=== PATIENT | female | born 1940 | race Caucasian/White ===

== ENCOUNTER 2016-12-12 14:24 | Inpatient (IN) ==
[2016-12-12] MEDS ORDERED: NS 1,000 ML IV SCH (14:33)
[2016-12-12] MEDS ORDERED: ZOFRAN IV PRN (14:37)
[2016-12-12] MEDS ORDERED: ROCEPHIN 1 GM/NS 1 GM/50 ML IVPB IV SCH (14:45)
[2016-12-12] MEDS ORDERED: CLINDAMYCIN 900 MG/NS 900 MG/50 ML IVPB IV SCH (14:45)
[2016-12-12] MEDS ORDERED: LOVENOX SUBQ SCH (14:45)
[2016-12-14] MEDS ORDERED: VANCOMYCIN IV PER PHARMACY MISC SCH (17:00)
[2016-12-14] MEDS: NORCO-10 PO PRN ×2 (17:39→21:41)
[2016-12-14] MEDS: CLINDAMYCIN 900 MG/NS 900 MG/50 ML IVPB IV SCH (18:30)
[2016-12-14] MEDS: SANTYL OINT TOP SCH (19:16)
[2016-12-14] MEDS ORDERED: VANCOMYCIN 1,600 MG in NS 250 ML IV ONE (20:00)
--- NOTE | 2016-12-14 20:49 | HISTORY AND PHYSICAL ---
CHIEF COMPLAINT: Sore on her right leg, both swelling and redness of both legs. HISTORY: This is the first recent [facility] admission for this 76-year-old, white female who is had intermittent cellulitis of both legs. She was seen in the office a few days ago and given clindamycin 300 mg t.i.d. After taking 1 tablet she had nausea and vomiting. This resolved and she tried to take some other tablets, but her legs apparently became worse. She presented to the office today and is admitted for culture of the ulcer on her right leg, Wound Care consultation, and IV antibiotics with clindamycin and vancomycin. History is significant also for severe depression. She had been placed on Lexapro recently, but has been suicidal over the past week. There has been a neighbor involved in trying to obtain appropriate care for her. Also, [employer] visited yesterday afternoon. Discussion was made with them and a letter sent related to her inability to make decisions for herself. She had stopped taking medicine appropriately and also was yelling at times that she would kill herself. There was a caregiver assisting at her home until about a week ago when he left with several possessions including a large amount of money in her bank. She has been having moderate right hip and low back pain. X- rays were ordered, but the patient was noncompliant in going to get the x-rays about 2 weeks ago. Because of her health conditions, fairly recent loss of her sister, and loss of possessions from the in-house caregiver, she has developed increasing depression over the past few weeks. A discussion was made concerning evaluation and possible admission to [facility], but the patient was resistant. Plans were made to admit her to the hospital at [place] for treatment of her legs a few days ago and orders were sent via computer. She was noncompliant in going to the hospital. The neighbor visited today as well as calls from [facility] convinced her to come to the office. After being seen it was felt that she should be admitted for treatment of her leg infections with intravenous antibiotics. She is diabetic and sugar has been fairly well controlled until recently. PAST MEDICAL HISTORY: No recent hospitalizations or surgery. 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 PRESENT MEDICATIONS: Glimepiride 4 mg daily, aspirin 325 mg daily, Brimonidine eye drops 0.1%, 1 drop in each eye q.8 hours, levothyroxine 100 mcg 1 daily, levothyroxine 25 mcg 1 daily, spironolactone 25 mg 1 daily, alprazolam 1 mg at bedtime for sleep, and [place] 10/325 1 t.i.d. p.r.n. pain. ALLERGIES: Penicillin, Cipro, Septra DS, and Pletal. REVIEW OF SYSTEMS: Significant for hearing loss, mild visual impairment, depression, osteoarthritis of the spine and hips, also of the knees. She has diabetes. There has been intermittent swelling and cellulitis of her legs due to chronic venous insufficiency. SOCIAL HISTORY: She is a and about a year ago lost her sister. She has chronic anxiety. There is no history of smoking or alcohol usage. 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 She was very resistant to either hospitalization or rehabilitation. A few days ago she was suicidal. She denies suicidal ideation today. FAMILY HISTORY: Significant for hypertension and heart disease. PHYSICAL EXAMINATION: VITAL SIGNS: Temperature 97.6 degrees, heart rate 54, respirations 24, blood pressure 114/94, O2 saturation 96% on room air. GENERAL: Patient is a well-developed, well-nourished, obese white female with general malaise. HEENT: Pupils equal, round, and reactive to light. Tympanic membranes without inflammation. Pharynx benign with no erythema or exudate. NECK: Supple with no mass or lymphadenopathy. HEART: Regular in rate and rhythm with no murmur, rub or gallop. LUNGS: Clear with no rales or rhonchi. ABDOMEN: Soft with no mass or organomegaly. EXTREMITIES: 2+ pretibial edema, moderate erythema and induration of both lower legs. There is a 3 cm deep ulcer of the anterior right tibia. Feet are warm. RECTAL AND GENITALIA: Deferred. IMPRESSION: Cellulitis of both legs, ulcer of the right lower leg, venous insufficiency, diabetes, depression, hearing loss with history of acoustic neuroma. PLAN: Admit for treatment with intravenous antibiotics, wound care evaluation, cultures of blood and ulcer, evaluation and treatment for depression. cc: Sabino Kimball MD
[2016-12-14] MEDS ORDERED: HUMALOG SUBQ SCH (21:00)
[2016-12-14] MEDS: XANAX PO SCH (21:32)
[2016-12-14] MEDS: ALPHAGAN P 0.1% OPHTH SOLN BOTH EYES SCH (21:33)
[2016-12-14] MEDS: HUMALOG DOSE (PARKWAY) SUBQ SCH (21:52)
[2016-12-15] MEDS: CLINDAMYCIN 900 MG/NS 900 MG/50 ML IVPB IV SCH ×3 (00:06→16:07)
[2016-12-15] MEDS: ALPHAGAN P 0.1% OPHTH SOLN BOTH EYES SCH ×2 (04:04→12:19)
[2016-12-15 06:11] LABS: MANUAL DIFF NEEDED? NO
[2016-12-15 06:20] LABS: BASO% 0.9 % (0.0-0.8); EOS# 0.67 X1000 (0.0-0.7); EOS% 11.9 % (0.0-10.0); HEMATOCRIT 26.1 % (37.0-47.0); HEMOGLOBIN 7.6 g/dL (12.0-16.0); IMM GRAN# 0.01 X1000 (0.0-0.04); IMM GRAN% 0.2 % (0.0-0.5); LYMPH# 1.71 X1000 (1.2-3.4); LYMPH% 30.3 % (20.5-51.1); MCH 24.7 PG (27-31); MCHC 29.1 g/dL (33-37); MCV 84.7 FL (81-99); MONO# 0.67 X1000 (0.11-0.59); MONO% 11.9 % (1.7-9.3); NEUT% 44.8 % (42.2-75.2); PLT 313 X1000 (130-400); RBC 3.08 XMIL (4.2-5.4)
[2016-12-15] MEDS: NORCO-10 PO PRN ×3 (06:45→21:25)
[2016-12-15] MEDS: SYNTHROID PO SCH ×2 (06:45→06:46)
[2016-12-15 06:50] LABS: CALCIUM 8.2 mg/dL (8.8-10.2); POTASSIUM 4.6 mmol/L (3.5-5.1)
[2016-12-15] MEDS: HUMALOG DOSE (PARKWAY) SUBQ SCH ×3 (06:56→16:04)
--- NOTE | 2016-12-15 07:28 | Diag Imaging Result Document ---
PROCEDURE NAME: LOWER LEG-RIGHT - 12/15/2016 RIGHT TIBIA FIBULA, FOUR VIEWS: FINDINGS: There is a soft tissue ulcer adjacent to the mid tibia. No periosteal reaction. No fracture or dislocation. Longstanding arthritic changes at the knee. IMPRESSION: No definite plain film evidence of osteomyelitis. If clinical suspicion persists, then a 3 phase bone scan or MRI may be beneficial. [facility]
--- NOTE | 2016-12-15 07:37 | Diag Imaging Result Document ---
PROCEDURE NAME: LUMBAR SPINE 2-VIEWS - 12/15/2016 LUMBAR SPINE AP AND LATERAL, THREE VIEWS: FINDINGS: There is mild scoliosis. Degenerative bone spurring is found throughout the lumbar spine. There are multiple vacuum disks. Mild subluxation of L5 on the sacrum of approximately 6 mm to 8 mm. Mild compression fracture to the L2 vertebra. Moderate atherosclerosis. IMPRESSION: 1. Mild scoliosis with moderate to marked degenerative changes. 2. Atherosclerosis. 3. Calcified uterine fibroids.
--- NOTE | 2016-12-15 07:43 | Diag Imaging Result Document ---
PROCEDURE NAME: CHEST-1 VIEW - 12/15/2016 AP CHEST: COMPARISON: 05/04/2015. FINDINGS: The lungs are well expanded. The heart is enlarged. Mild increased interstitial markings. Minimal atelectasis in the lower left lung. No pleural effusions identified. IMPRESSION: Cardiomegaly with pulmonary edema.
--- NOTE | 2016-12-15 08:47 | Diag Imaging Result Document ---
PROCEDURE NAME: XRAY HIP W/PELVIS BILAT 3-4VWS - 12/15/2016 AP PELVIS AND BILATERAL HIPS: FINDINGS: The hip joint spaces are well maintained. There is some generalized osteopenia. There are densely calcified leiomyomata in the mid pelvis and a large amount of stool is present in the descending and rectosigmoid colon. IMPRESSION: No evidence of acute bony disease. Constipation.
[2016-12-15] MEDS: LEXAPRO PO SCH (09:14)
[2016-12-15] MEDS: ASPIRIN EC PO SCH (09:14)
[2016-12-15] MEDS: LASIX IV SCH ×2 (09:15→21:26)
[2016-12-15] MEDS: ALDACTONE PO SCH (09:15)
[2016-12-15] MEDS: SANTYL OINT TOP SCH (09:15)
[2016-12-15] MEDS ORDERED: BENADRYL PO ONE (11:16)
[2016-12-15] MEDS ORDERED: TYLENOL PO ONE (11:16)
[2016-12-15] MEDS ORDERED: NS 250 ML ONE (12:06)
[2016-12-15] MEDS: XANAX PO SCH (21:23)
[2016-12-15] MEDS: DILAUDID IV PRN (22:12)
[2016-12-16] MEDS: ALPHAGAN P 0.1% OPHTH SOLN BOTH EYES SCH ×4 (01:26→20:59)
[2016-12-16] MEDS: HUMALOG DOSE (PARKWAY) SUBQ SCH ×5 (01:26→20:59)
[2016-12-16] MEDS: LITHOBID PO SCH ×2 (01:53→20:59)
[2016-12-16] MEDS: DILAUDID IV PRN ×5 (01:53→20:58)
[2016-12-16] MEDS: CLINDAMYCIN 900 MG/NS 900 MG/50 ML IVPB IV SCH ×3 (01:55→17:03)
[2016-12-16] MEDS: SYNTHROID PO SCH ×2 (06:29)
--- NOTE | 2016-12-16 08:47 | PROGRESS NOTE ---
DATE: 12/16/2016 VITAL SIGNS: Temperature 98.5, heart rate 59, respirations 22, blood pressure 122/47, O2 saturation on room air 97%. The patient continues to complain with lumbar and right hip pain partially relieved by Dilaudid. The edema in her legs is improved, but erythema and ulcer on the right leg are about the same. Blood cultures showed no growth at this time. PLAN: Add Lyrica and Flexeril. Laboratory will be rechecked tomorrow morning. cc: Sabino Kimball MD
[2016-12-16] MEDS: LASIX IV SCH ×2 (09:45→20:58)
[2016-12-16] MEDS: ASPIRIN EC PO SCH (09:45)
[2016-12-16] MEDS: ALDACTONE PO SCH (09:45)
[2016-12-16] MEDS: LEXAPRO PO SCH (09:46)
[2016-12-16] MEDS: FLEXERIL PO PRN ×2 (09:46→20:58)
[2016-12-16] MEDS: LYRICA PO SCH ×2 (09:46→20:58)
[2016-12-16] MEDS: SANTYL OINT TOP SCH (17:27)
[2016-12-16] MEDS ORDERED: VANCOMYCIN 1,400 MG in NS 250 ML IV SCH (20:00)
[2016-12-16] MEDS: XANAX PO SCH (20:58)
[2016-12-17] MEDS: CLINDAMYCIN 900 MG/NS 900 MG/50 ML IVPB IV SCH ×3 (00:25→16:19)
[2016-12-17] MEDS: DILAUDID IV PRN ×4 (00:25→15:35)
[2016-12-17] MEDS: SYNTHROID PO SCH ×4 (05:57→06:00)
[2016-12-17] MEDS: HUMALOG DOSE (PARKWAY) SUBQ SCH ×3 (05:59→15:37)
[2016-12-17] MEDS: ALPHAGAN P 0.1% OPHTH SOLN BOTH EYES SCH ×2 (05:59→12:15)
[2016-12-17 07:10] LABS: MANUAL DIFF NEEDED? NO
[2016-12-17 07:41] LABS: CALCIUM 8.7 mg/dL (8.8-10.2); POTASSIUM 4.7 mmol/L (3.5-5.1)
[2016-12-17 07:42] LABS: BASO% 0.5 % (0.0-0.8); EOS# 0.59 X1000 (0.0-0.7); EOS% 7.6 % (0.0-10.0); HEMATOCRIT 32.2 % (37.0-47.0); IMM GRAN# 0.01 X1000 (0.0-0.04); IMM GRAN% 0.1 % (0.0-0.5); LYMPH# 1.31 X1000 (1.2-3.4); LYMPH% 16.8 % (20.5-51.1); MCH 26.1 PG (27-31); MCHC 31.1 g/dL (33-37); MCV 84.1 FL (81-99); MONO# 1.11 X1000 (0.11-0.59); MONO% 14.3 % (1.7-9.3); MPV 9.9 FL (7.4-10.4); NEUT% 60.7 % (42.2-75.2); PLT 348 X1000 (130-400); RBC 3.83 XMIL (4.2-5.4)
--- NOTE | 2016-12-17 08:55 | PROGRESS NOTE ---
DATE: 12/17/2016 VITAL SIGNS: Temperature 98.5 degrees, heart rate 67, respirations 21, blood pressure 157/58, O2 saturation 98% on room air. LABORATORY DATA: Hemoglobin 10, hematocrit 32.2, white blood count 7700 with 61% neutrophils. Sodium 134, potassium 4.7, BUN 33, creatinine 1.2, glucose 107. Wound cultures positive for pseudomonas and enterococcus, both sensitive to vancomycin. IMPRESSION: The patient seems to be feeling better this morning with less back pain. Chest is clear. PLAN: Continue IV antibiotics and physical therapy. Rehab or admission to [facility], [place] will be considered. cc: Sabino Kimball MD
[2016-12-17] MEDS: SANTYL OINT TOP SCH (09:22)
[2016-12-17] MEDS: LASIX IV SCH ×2 (09:23→20:44)
[2016-12-17] MEDS: LEXAPRO PO SCH (09:23)
[2016-12-17] MEDS: LYRICA PO SCH ×2 (09:23→20:44)
[2016-12-17] MEDS: ALDACTONE PO SCH (09:23)
[2016-12-17] MEDS: ASPIRIN EC PO SCH (09:25)
[2016-12-17] MEDS: DILAUDID PO PRN (20:44)
[2016-12-17] MEDS: FLEXERIL PO PRN (20:44)
[2016-12-17] MEDS: XANAX PO SCH (20:44)
[2016-12-18] MEDS: CLINDAMYCIN 900 MG/NS 900 MG/50 ML IVPB IV SCH ×3 (01:28→17:35)
[2016-12-18] MEDS: DILAUDID PO PRN ×4 (01:36→20:23)
[2016-12-18] MEDS: VANCOMYCIN 1,400 MG in NS 250 ML IV SCH (02:10)
[2016-12-18] MEDS: HUMALOG DOSE (PARKWAY) SUBQ SCH ×5 (02:41→20:30)
[2016-12-18] MEDS: ALPHAGAN P 0.1% OPHTH SOLN BOTH EYES SCH ×4 (02:41→20:25)
[2016-12-18] MEDS: LITHOBID PO SCH ×2 (02:57→20:27)
[2016-12-18] MEDS: SYNTHROID PO SCH ×2 (06:41)
--- NOTE | 2016-12-18 08:39 | PROGRESS NOTE ---
DATE: 12/18/2016 VITAL SIGNS: Temperature 99.5 degrees, heart rate 113, respirations 18, blood pressure 155/56, O2 saturation 95% on room air. SUBJECTIVE: The patient continues to have moderate lumbar and right hip pain. Source is most likely lumbar spine degenerative change. Her legs have improved but ulcer persists on the right mid anterior tibial area. Plan whirlpool for right leg daily. DISPOSITION: Will be either [facility], rehab, or home. Her depression seems somewhat improved. cc: Sabino Kimball MD
[2016-12-18] MEDS: ASPIRIN EC PO SCH (08:59)
[2016-12-18] MEDS: LYRICA PO SCH ×2 (08:59→20:23)
[2016-12-18] MEDS: LASIX IV SCH ×2 (08:59→20:24)
[2016-12-18] MEDS: LEXAPRO PO SCH (08:59)
[2016-12-18] MEDS: ALDACTONE PO SCH (08:59)
[2016-12-18] MEDS: SANTYL OINT TOP SCH (13:23)
[2016-12-18] MEDS: XANAX PO SCH (20:24)
[2016-12-19] MEDS: DILAUDID PO PRN ×5 (00:37→20:29)
[2016-12-19] MEDS: CLINDAMYCIN 900 MG/NS 900 MG/50 ML IVPB IV SCH ×3 (00:37→17:11)
[2016-12-19] MEDS ORDERED: BLISTEX MEDICATED BERRY LIP BALM TOP PRN (02:02)
[2016-12-19] MEDS: HUMALOG DOSE (PARKWAY) SUBQ SCH ×3 (06:23→17:10)
[2016-12-19] MEDS: SYNTHROID PO SCH ×2 (06:24)
[2016-12-19] MEDS: ALPHAGAN P 0.1% OPHTH SOLN BOTH EYES SCH ×3 (06:24→20:33)
--- NOTE | 2016-12-19 07:53 | PROGRESS NOTE ---
DATE: 12/19/2016 Temperature 100.1 degrees, heart rate 88, respirations 20, blood pressure 165/60, O2 saturation on room air 96%. [facility] visited yesterday and she denied depression. She complains with tremor. This is most likely related to the lithium despite being subtherapeutic level at 0.53. Her legs have improved, but the ulcer on the right anterior tibial area persists. Whirlpool is not available. PLAN: Seek rehab facility since patient is unable to walk without assistance. Physical therapy has not been ambulating and this is to be started. Lab will be rechecked tomorrow morning. cc: Sabino Kimball MD
[2016-12-19] MEDS: LYRICA PO SCH ×2 (08:55→20:29)
[2016-12-19] MEDS: VANCOMYCIN 1,400 MG in NS 250 ML IV SCH (08:55)
[2016-12-19] MEDS: LEXAPRO PO SCH (08:55)
[2016-12-19] MEDS: ALDACTONE PO SCH (08:55)
[2016-12-19] MEDS: LOVENOX SUBQ SCH (08:56)
[2016-12-19] MEDS: LASIX IV SCH ×2 (08:56→20:29)
[2016-12-19] MEDS: SANTYL OINT TOP SCH (11:04)
[2016-12-19] MEDS: XANAX PO SCH (20:29)
[2016-12-20] MEDS: LASIX IV SCH (00:32)
[2016-12-20] MEDS: HUMALOG DOSE (PARKWAY) SUBQ SCH ×5 (00:32→23:06)
[2016-12-20] MEDS: CLINDAMYCIN 900 MG/NS 900 MG/50 ML IVPB IV SCH (01:00)
[2016-12-20] MEDS: DILAUDID PO PRN ×3 (03:27→11:08)
[2016-12-20 06:11] LABS: MANUAL DIFF NEEDED? NO
[2016-12-20] MEDS: SYNTHROID PO SCH ×2 (06:11)
[2016-12-20] MEDS: ALPHAGAN P 0.1% OPHTH SOLN BOTH EYES SCH ×3 (06:13→23:06)
[2016-12-20 07:05] LABS: BASO% 0.5 % (0.0-0.8); EOS# 0.49 X1000 (0.0-0.7); EOS% 5.3 % (0.0-10.0); HEMATOCRIT 34.4 % (37.0-47.0); HEMOGLOBIN 10.4 g/dL (12.0-16.0); IMM GRAN# 0.01 X1000 (0.0-0.04); IMM GRAN% 0.1 % (0.0-0.5); LYMPH# 1.45 X1000 (1.2-3.4); LYMPH% 15.6 % (20.5-51.1); MCH 25.2 PG (27-31); MCHC 30.2 g/dL (33-37); MCV 83.3 FL (81-99); MONO# 1.46 X1000 (0.11-0.59); MONO% 15.7 % (1.7-9.3); MPV 9.9 FL (7.4-10.4); NEUT% 62.8 % (42.2-75.2); PLT 342 X1000 (130-400); RBC 4.13 XMIL (4.2-5.4)
--- NOTE | 2016-12-20 07:15 | PROGRESS NOTE ---
DATE: 12/20/2016 VITAL SIGNS: Temperature 99.4 degrees, heart rate 84, respirations 18, blood pressure 156/67, and O2 saturation on room air 94%. LABORATORY: Pending. Blood sugar 109. SUBJECTIVE: She is feeling a little better but continues to have moderate back and right hip pain. Dilaudid seems to help for about 3 hours. Both legs have improved, but ulcer persists in the anterior right tibial area. PLAN: Discontinue intravenous antibiotics and IV. She is changed to p.o. clindamycin. Physical Therapy is to continue to ambulate. Rehab bed is pending. cc: Sabino Kimball MD
[2016-12-20 07:18] LABS: AGAP 12; BUN 12 mg/dL (8-22); CALCIUM 8.5 mg/dL (8.8-10.2); CHLORIDE 95 mmol/L (98-107); COSMO 269; POTASSIUM 3.9 mmol/L (3.5-5.1); SODIUM 135 mmol/L (136-145); TCO2 28 mmol/L (25-35)
[2016-12-20] MEDS: LEXAPRO PO SCH ×2 (07:36→09:06)
[2016-12-20] MEDS: ALDACTONE PO SCH ×2 (07:36→09:06)
[2016-12-20] MEDS: CLEOCIN PO SCH ×3 (07:37→21:21)
[2016-12-20] MEDS: LOVENOX SUBQ SCH (09:07)
[2016-12-20] MEDS: LYRICA PO SCH ×3 (09:07→17:32)
[2016-12-20] MEDS: SANTYL OINT TOP SCH (09:07)
[2016-12-20] MEDS: ZOFRAN ODT PO PRN ×2 (11:08→15:22)
[2016-12-20] MEDS ORDERED: TYLENOL PO ONE (14:53)
[2016-12-20 16:57] LABS: BE 5.2 mmoll (-3.0-3.0); BLOOD TYPE ARTERIAL; DRAW SITE R RADIAL; METHB 1.7 % (0.0-1.5); O2(CT) 11.3 mL/dL (15.0-23.0); SAMPLE BLOOD; SAO2 80.1 % (95.0-100.0); THB 10.5 g/dL (11.5-17.4); pH(98.6) 7.38 (7.35-7.45)
[2016-12-20 17:08] LABS: PCO2(98.6) 53 mmHg (35-45)
[2016-12-20 17:09] LABS: MODALITY ROOM AIR; PO2(98.6) 40 mmHg (60-100)
[2016-12-20 17:10] LABS: ALLEN TEST YES
--- NOTE | 2016-12-20 20:04 | PROGRESS NOTE ---
DATE: 12/20/2016 OBJECTIVE: Vital signs: Temperature 99.3 degrees, heart rate 90, respirations 18, blood pressure 139/70. O2 saturation on 2 liters nasal oxygen 93%. Patient had a hypoxic episode while asleep this afternoon and O2 saturation dropped to 85. She has not complained with shortness of breath. There is no increase in swelling of the legs. Possibilities include DVT, sedation by pain medicine, or sleep apnea. She is somnolent this p.m. Venous Doppler study is obtained. Lovenox is stopped and she is changed to Eliquis 5 mg p.o. b.i.d. Dilaudid is discontinued and she is placed on [place] 10/325 q.4 hours p.r.n. pain. Chest x- ray will be done tomorrow morning. Lungs are clear to auscultation. cc: Sabino Kimball MD
[2016-12-20] MEDS: XANAX PO SCH (21:20)
[2016-12-20] MEDS: ELIQUIS PO SCH (21:20)
[2016-12-21] MEDS: CLEOCIN PO SCH ×4 (01:17→21:44)
[2016-12-21] MEDS: ALPHAGAN P 0.1% OPHTH SOLN BOTH EYES SCH ×3 (06:18→21:44)
[2016-12-21] MEDS: SYNTHROID PO SCH ×2 (06:18)
--- NOTE | 2016-12-21 07:11 | Diag Imaging Result Document ---
PROCEDURE NAME: CHEST-PORTABLE - 12/21/2016 PORTABLE CHEST: COMPARISON: Compared to 12/15/2016. FINDINGS: Poor inspiratory effort. The heart remains enlarged. Slight vascular distention persists. No pleural effusions identified. No pneumonia. IMPRESSION: Poor inspiratory effort otherwise, stable exam.
[2016-12-21] MEDS: HUMALOG DOSE (PARKWAY) SUBQ SCH ×4 (07:20→21:45)
[2016-12-21] MEDS: SANTYL OINT TOP SCH (08:05)
[2016-12-21] MEDS: LEXAPRO PO SCH (08:14)
[2016-12-21] MEDS: LYRICA PO SCH ×3 (08:15→16:22)
[2016-12-21] MEDS: ELIQUIS PO SCH ×2 (08:15→21:45)
[2016-12-21] MEDS: ALDACTONE PO SCH (08:15)
--- NOTE | 2016-12-21 09:15 | PROGRESS NOTE ---
DATE: 12/21/2016 VITAL SIGNS: Stable with temperature 98.5 degrees, heart rate 74, respiration 18, blood pressure 135/54, O2 saturation on 2 L nasal oxygen 98%. Blood sugar 135. Patient is alert and complaining with discomfort due to the nasal cannula. Her O2 saturation has improved since yesterday. Most likely her hypoxic episode was related to her pain medicine. Despite this a venous Doppler will be done of the legs today. Chest x-ray revealed no change and no infiltrates. PLAN: Rehab at discharge. cc: Sabino Kimball MD
[2016-12-21] MEDS: NORCO-10 PO PRN ×2 (09:40→22:22)
[2016-12-21] MEDS: XANAX PO SCH (21:45)
[2016-12-22] MEDS: CLEOCIN PO SCH ×4 (02:04→22:17)
[2016-12-22] MEDS: ALPHAGAN P 0.1% OPHTH SOLN BOTH EYES SCH ×3 (06:08→22:17)
[2016-12-22] MEDS: HUMALOG DOSE (PARKWAY) SUBQ SCH ×4 (06:09→23:08)
[2016-12-22] MEDS: SYNTHROID PO SCH ×2 (06:09)
--- NOTE | 2016-12-22 07:09 | Extremity Venous Study ---
PROCEDURE NAME: Venous U/S Bilateral Legs - 12/21/2016 BILATERAL LOWER EXTREMITY VENOUS DOPPLER ULTRASOUND: FINDINGS: RIGHT: There is good flow and compressibility in the veins of the right lower extremity. No thrombus. Normal augmentation. LEFT: There is good flow and compressibility in the veins of the left lower extremity. No thrombus. Normal augmentation. IMPRESSION: No evidence of deep venous thrombosis within either lower extremity.
--- NOTE | 2016-12-22 08:10 | PROGRESS NOTE ---
DATE: 12/22/2016 PRIMARY CARE PHYSICIAN: Sabino Kimball MD SUBJECTIVE: Overnight, patient had some dressing changes that were tolerated well. Describes wanting to rest without intervention or interaction. OBJECTIVE: Vital Signs: Temperature 98.2 degrees, pulse 72, respirations 18, blood pressure 114/57, O2 saturation 100% on nasal cannula. I's and O's show positive of about 560. Patient eating about 75% of meals. General: The patient is alert. No complaints. O2 nasal cannula. Well-developed well-nourished. HEENT: Pupils are equal, round, react to light and accommodation. Neck: Supple. No lymphadenopathy. Heart: Regular rate and rhythm. No murmurs, gallops, rubs. Abdomen: Soft. No masses noted. Extremities: Show 2+ edema with erythema and induration, 3 cm ulcer right anterior tibia. Feet are warm. LABS: Note a WBC of 9.27. POC glucose 69, otherwise within normal limits. Microbiology shows a stool occult blood. blood growth negative x2. Wound culture positive Pseudomonas. ASSESSMENT AND PLAN: A 76-year-old white female with: 1. Pseudomonas skin infection currently on clindamycin and Wound Care following. 2. Hypothyroidism. 3. Hearing loss. 4. Chronic anxiety. 5. Hypoxemia. 6. History of depression. PLANS: Patient will be continued on IV medications checking daily. Plan to return from this hospitalization to rehab as soon as stable. The patient will currently continue the medications as noted. Extremity venous study performed today. Unofficial results shows no DVTs and good flow bilaterally. cc: MD Sabino Ma MD
[2016-12-22] MEDS: LYRICA PO SCH ×2 (09:47→12:39)
[2016-12-22] MEDS: ALDACTONE PO SCH (09:48)
[2016-12-22] MEDS: ELIQUIS PO SCH ×2 (09:48→22:17)
[2016-12-22] MEDS: LEXAPRO PO SCH (09:48)
[2016-12-22] MEDS: SANTYL OINT TOP SCH (09:48)
[2016-12-22] MEDS: NORCO-10 PO PRN (09:55)
[2016-12-22] MEDS: ZOFRAN ODT PO PRN (11:38)
[2016-12-22] MEDS: FLEXERIL PO PRN (12:38)
[2016-12-22] MEDS: XANAX PO SCH (22:17)
[2016-12-23] MEDS: CLEOCIN PO SCH ×4 (02:17→22:04)
[2016-12-23] MEDS: NORCO-10 PO PRN ×3 (02:19→22:05)
[2016-12-23] MEDS: FLEXERIL PO PRN (02:19)
[2016-12-23] MEDS: SYNTHROID PO SCH ×2 (06:13)
[2016-12-23] MEDS: ALPHAGAN P 0.1% OPHTH SOLN BOTH EYES SCH ×3 (06:18→22:05)
[2016-12-23 06:19] LABS: MANUAL DIFF NEEDED? NO
[2016-12-23 06:21] LABS: BASO% 0.6 % (0.0-0.8); EOS# 0.86 X1000 (0.0-0.7); EOS% 13.1 % (0.0-10.0); HEMATOCRIT 32.6 % (37.0-47.0); HEMOGLOBIN 9.8 g/dL (12.0-16.0); IMM GRAN# 0.01 X1000 (0.0-0.04); IMM GRAN% 0.2 % (0.0-0.5); LYMPH# 1.55 X1000 (1.2-3.4); LYMPH% 23.6 % (20.5-51.1); MCH 25.3 PG (27-31); MCHC 30.1 g/dL (33-37); MCV 84.2 FL (81-99); MONO# 1.01 X1000 (0.11-0.59); MONO% 15.4 % (1.7-9.3); NEUT% 47.1 % (42.2-75.2); PLT 299 X1000 (130-400); RBC 3.87 XMIL (4.2-5.4)
[2016-12-23] MEDS: HUMALOG DOSE (PARKWAY) SUBQ SCH ×4 (06:39→22:09)
[2016-12-23 06:52] LABS: ALBUMIN 2.9 g/dL (3.5-5.0); CALCIUM 8.3 mg/dL (8.8-10.2); POTASSIUM 4.2 mmol/L (3.5-5.1); TOTAL BILIRUBIN 0.4 mg/dL (0.20-1.00); TOTAL PROTEIN 5.9 g/dL (6.3-8.3)
[2016-12-23] MEDS: ELIQUIS PO SCH ×2 (08:09→22:04)
[2016-12-23] MEDS: LEXAPRO PO SCH (08:09)
[2016-12-23] MEDS: ALDACTONE PO SCH (08:09)
[2016-12-23] MEDS: SANTYL OINT TOP SCH (08:10)
[2016-12-23] MEDS ORDERED: LASIX IV ONE (08:26)
--- NOTE | 2016-12-23 09:49 | PROGRESS NOTE ---
DATE: 12/23/2016 PRIMARY CARE PHYSICIAN: Sabino Kimball MD. SUBJECTIVE: Overnight, no issues or complaints. Patient was held from the Lyrica due to some mild confusion and slurred speech. Not noted whether this speech is at baseline. But overall, patient has had no new complaints. Still a question of rehab availability on discharge. OBJECTIVE: Vital signs: Temperature 98.2, pulse 75, respirations 18, blood pressure 135/61, O2 saturation between 95 and 100 on 2-3 L nasal cannula. I's and O's show a negative 270 fluid balance. Patient eating between 25 and 75% of meals. LABS: Microbiology: Blood culture x2 no growth to date. Wound culture positive for Pseudomonas aeruginosa with no yeast. Pansensitive vancomycin, cefepime and amikacin. Also the lower extremity culture is noted to have an Enterococcus faecalis showing self- contamination of the source. Labs today show a WBC of 6.56 with a hemoglobin and hematocrit of 9.8 and 32.6. MCV of 84, platelets of 299. Neutrophils now within normal limits. Chemistry shows overhydration with sodium 131, potassium 4.2, anion gap of 8, creatinine 1.1. Glucose of 75-180, calcium 8.3 with a phosphorus of 2.5. AST, ALT normal with an alkaline phosphatase of 109. BNP elevated at 3939. Total protein low at 2.9. Patient had extremity venous study 12/21/2016, showed no evidence of DVT. ASSESSMENT: A 76-year-old, white female with: 1. Pseudomonas/enterococcus skin infection. Currently on clindamycin with Wound Care following. WBC is within normal limits. 2. Hypothyroidism. 3. Hearing loss. 4. Hypervolemia with hyponatremia. 5. Hypophosphatemia. 6. Hypoxemia. 7. History of depression. PLAN: Patient to be continued on her IV medications. We will stop the fluids along with monitoring, status post the Lyrica. Patient will also be repleted with PhosLo packets with a repeat CT in the a.m. and discussion about proper home wound care and beginning therapies to trend patient to the home for home care if at all possible. cc: MD Sabino Ma MD
[2016-12-23] MEDS ORDERED: LASIX PO ONE (10:09)
[2016-12-23] MEDS: NEUTRA-PHOS PO SCH ×4 (11:04→22:03)
[2016-12-23] MEDS ORDERED: LEXAPRO PO SCH (21:00)
[2016-12-23] MEDS: XANAX PO SCH (22:05)
[2016-12-24] MEDS: CLEOCIN PO SCH ×4 (03:23→21:39)
[2016-12-24] MEDS: ALPHAGAN P 0.1% OPHTH SOLN BOTH EYES SCH ×3 (04:04→21:42)
[2016-12-24 06:06] LABS: MANUAL DIFF NEEDED? NO
[2016-12-24] MEDS: SYNTHROID PO SCH ×2 (06:10)
[2016-12-24] MEDS: HUMALOG DOSE (PARKWAY) SUBQ SCH ×3 (06:10→17:14)
[2016-12-24 06:36] LABS: AGAP 7; ALBUMIN 3.2 g/dL (3.5-5.0); ALKALINE PHOSPHATASE 109 U/L (32-104); BUN 14 mg/dL (8-22); CALCIUM 8.6 mg/dL (8.8-10.2); CHLORIDE 96 mmol/L (98-107); COSMO 271; GOT 13 U/L (10-30); GPT 10 U/L (10-36); IRON SATURATION 10 %; MAGNESIUM 1.9 mg/dL (1.5-2.7); POTASSIUM 4.3 mmol/L (3.5-5.1); SODIUM 135 mmol/L (136-145); TCO2 32 mmol/L (25-35); TIBC 266 ug/dL; TOTAL IRON 27 ug/dL (49-151); TOTAL PROTEIN 6.2 g/dL (6.3-8.3); UNBOUND IRON 239 ug/dL (112-346)
[2016-12-24 06:48] LABS: BASO% 0.5 % (0.0-0.8); EOS% 12.2 % (0.0-10.0); HEMATOCRIT 35.5 % (37.0-47.0); HEMOGLOBIN 10.7 g/dL (12.0-16.0); LYMPH% 29.7 % (20.5-51.1); MCH 25.2 PG (27-31); MCHC 30.1 g/dL (33-37); MCV 83.5 FL (81-99); MONO# 0.91 X1000 (0.11-0.59); MONO% 15.9 % (1.7-9.3); MPV 9.8 FL (7.4-10.4); NEUT% 41.7 % (42.2-75.2); PLT 324 X1000 (130-400); RBC 4.25 XMIL (4.2-5.4)
[2016-12-24] MEDS: LEXAPRO PO SCH (08:17)
[2016-12-24] MEDS: NORCO-10 PO PRN ×2 (08:17→21:40)
[2016-12-24] MEDS: ALDACTONE PO SCH (08:17)
[2016-12-24] MEDS: NEUTRA-PHOS PO SCH (08:18)
[2016-12-24] MEDS: ELIQUIS PO SCH ×2 (08:18→21:39)
[2016-12-24] MEDS: SANTYL OINT TOP SCH (11:06)
--- NOTE | 2016-12-24 14:49 | PROGRESS NOTE ---
DATE: 12/24/2016 PRIMARY CARE PHYSICIAN: Dr. Kimball. SUBJECTIVE: Overnight, patient was complaining of the leg wound being painful. Also complaining a little bit of left hip pain, minimal; ambulation is likely the most overt cause. OBJECTIVE: Vital signs: Temperature 98.3 degrees, pulse 81, respirations 18, blood pressure 148/53, O2 saturation 99% on 2 L nasal cannula. I's and O's: About 2 L negative regarding output. The patient is eating between 50% and 75% of meals. General: Obese white female, in no acute distress. Slightly somnolent. Extremities: Right lower extremity wound with less surrounding erythema, approximately 1 cm. Dressing is clean, dry, and intact. There is 2+ edema. CV: Regular rhythm. No murmurs, gallops, or rubs. Lungs: Showing decreased breath sounds at bilateral bases, likely secondary to obesity hypoventilation syndrome. LABORATORY DATA: This morning show a WBC of 5.7 with a hemoglobin and hematocrit of 10 and 35, MCV of 83, platelets of 324,000, neutrophils now down 41.7. Electrolytes: Potassium normalized, sodium 135, anion gap of 7, creatinine 0.9. POC glucose 109-180. Calcium at 8.6. Phosphorus now repleted. Iron slightly low. TSH 0.5. Microbiology shows the Pseudomonas aeruginosa and enterococcus faecalis. Wound culture Gram stain, no additional images noted. ASSESSMENT AND PLAN: This is a 76-year-old white female with: 1. Pseudomonas/enterococcus skin infection. Currently on clindamycin. Wound care following. WBC trending to normal. The patient is responding really well. Treatments can be tailored as necessary to p.o. medications. 2. Hip pain, osteoarthritis. Likely secondary to lack of movement and patient's current obesity. Continue to follow. Anti-inflammatories p.r.n. 3. Hypothyroidism. 4. Hypervolemia with hyponatremia, resolved. 5. Hypophosphatemia, resolved. 6. Hypoxemia. Improving on current regimen. 7. History of depression. Lexapro increased and Lyrica discontinued due to some issues noted there. The patient will be continued to follow. Maintain at a baseline and would be ready for rehabilitation per PCP's needs as soon as tomorrow. cc: MD Sabino Ma MD
[2016-12-24] MEDS: XANAX PO SCH (21:41)
[2016-12-25] MEDS: HUMALOG DOSE (PARKWAY) SUBQ SCH ×5 (00:58→21:18)
[2016-12-25] MEDS: CLEOCIN PO SCH ×4 (01:43→21:16)
[2016-12-25 05:45] LABS: MANUAL DIFF NEEDED? NO
[2016-12-25 06:05] LABS: EOS# 0.58 X1000 (0.0-0.7); EOS% 11.1 % (0.0-10.0); HEMATOCRIT 34.8 % (37.0-47.0); HEMOGLOBIN 10.3 g/dL (12.0-16.0); IMM GRAN# 0.01 X1000 (0.0-0.04); IMM GRAN% 0.2 % (0.0-0.5); LYMPH# 1.44 X1000 (1.2-3.4); LYMPH% 27.6 % (20.5-51.1); MCH 25.1 PG (27-31); MCHC 29.6 g/dL (33-37); MCV 84.7 FL (81-99); MONO# 0.74 X1000 (0.11-0.59); MONO% 14.2 % (1.7-9.3); MPV 9.8 FL (7.4-10.4); NEUT% 45.9 % (42.2-75.2); PLT 303 X1000 (130-400); RBC 4.11 XMIL (4.2-5.4)
[2016-12-25 06:11] LABS: AGAP 11; ALBUMIN 3.3 g/dL (3.5-5.0); ALKALINE PHOSPHATASE 105 U/L (32-104); BUN 11 mg/dL (8-22); CALCIUM 8.8 mg/dL (8.8-10.2); CHLORIDE 97 mmol/L (98-107); COSMO 276; GOT 14 U/L (10-30); GPT 10 U/L (10-36); MAGNESIUM 1.7 mg/dL (1.5-2.7); POTASSIUM 3.9 mmol/L (3.5-5.1); SODIUM 138 mmol/L (136-145); TCO2 30 mmol/L (25-35); TOTAL PROTEIN 6.1 g/dL (6.3-8.3)
[2016-12-25] MEDS: SYNTHROID PO SCH ×2 (06:21)
[2016-12-25] MEDS: ALPHAGAN P 0.1% OPHTH SOLN BOTH EYES SCH ×3 (06:21→21:16)
--- NOTE | 2016-12-25 07:38 | PROGRESS NOTE ---
DATE: 12/25/2016 OBJECTIVE: Vital signs are stable with temperature 98.3 degrees, heart rate 81, respirations 18, blood pressure 160/58, and O2 saturation 100% on 2 liters nasal oxygen. LABORATORY DATA: Hemoglobin 10.3, hematocrit 34.8, white blood count 5200. Sodium 138, potassium 3.9, BUN 11, creatinine 0.8, glucose 116, alkaline phosphatase 105, total protein 6.1, albumin 3.3. Venous Doppler study was negative for DVT. PLAN: Lexapro was increased and Lyrica discontinued. Her O2 saturation is on room air. Hopefully we can discontinue oxygen. Rehab is planned when a bed is available. cc: Sabino Kimball MD
[2016-12-25] MEDS: NORCO-10 PO PRN ×2 (08:03→15:55)
[2016-12-25] MEDS: ALDACTONE PO SCH (08:03)
[2016-12-25] MEDS: LEXAPRO PO SCH (08:03)
[2016-12-25] MEDS: ELIQUIS PO SCH ×2 (08:03→21:15)
[2016-12-25] MEDS: SANTYL OINT TOP SCH (08:06)
[2016-12-25] MEDS: XANAX PO SCH (21:15)
[2016-12-26] MEDS: CLEOCIN PO SCH ×4 (01:02→21:46)
[2016-12-26] MEDS: NORCO-10 PO PRN ×3 (01:02→15:11)
[2016-12-26] MEDS: ALPHAGAN P 0.1% OPHTH SOLN BOTH EYES SCH ×3 (05:51→22:50)
[2016-12-26] MEDS: SYNTHROID PO SCH ×4 (05:52→06:44)
[2016-12-26] MEDS: HUMALOG DOSE (PARKWAY) SUBQ SCH ×4 (06:44→21:46)
[2016-12-26] MEDS ORDERED: SOLU-MEDROL IV ONE (07:33)
[2016-12-26] MEDS: FLEXERIL PO PRN (07:50)
--- NOTE | 2016-12-26 08:28 | PROGRESS NOTE ---
DATE: 12/26/2016 VITAL SIGNS: Temperature 98.1 degrees, heart rate 96, respiration 18, blood pressure 176/85, O2 saturation on room air 98%. OBJECTIVE: General: Patient is tearful, complaining with right hip and low back pain uncontrolled with medicines. Chest: Clear. She is sitting on the side of the bed. Extremities: Ankle edema has improved, as well as cellulitis. The ulcer on the right leg has almost resolved. PLAN: Increase [place], give bolus of Solu-Medrol, 1 dose. Rehabilitation is planned at discharge. Since she is level 2 related to depression, final assessment by the [facility] is to be finished on Sunday. She may be able to go to rehab then. cc: Sabino Kimball MD
[2016-12-26] MEDS: LEXAPRO PO SCH (08:58)
[2016-12-26] MEDS: ELIQUIS PO SCH ×2 (08:58→21:46)
[2016-12-26] MEDS: ALDACTONE PO SCH (08:58)
[2016-12-26] MEDS: COZAAR PO SCH (08:58)
[2016-12-26] MEDS: ZOFRAN ODT PO PRN (08:59)
[2016-12-26] MEDS ORDERED: STERILE WATER INJ. INJ PRN (09:23)
[2016-12-26] MEDS ORDERED: DEPO-MEDROL IM ONE (09:23)
[2016-12-26] MEDS ORDERED: GEODON IM PRN (09:23)
[2016-12-26] MEDS: SANTYL OINT TOP SCH (11:16)
[2016-12-26] MEDS: APRESOLINE PO SCH ×2 (15:12→21:46)
[2016-12-26] MEDS: XANAX PO SCH (21:46)
[2016-12-27] MEDS: CLEOCIN PO SCH ×4 (03:25→21:40)
[2016-12-27] MEDS: SYNTHROID PO SCH ×2 (06:01)
[2016-12-27] MEDS: ALPHAGAN P 0.1% OPHTH SOLN BOTH EYES SCH ×3 (06:02→21:41)
[2016-12-27] MEDS: APRESOLINE PO SCH ×3 (06:02→21:40)
[2016-12-27] MEDS: HUMALOG DOSE (PARKWAY) SUBQ SCH ×4 (06:28→21:41)
[2016-12-27] MEDS: NORCO-10 PO PRN ×2 (07:11→13:55)
[2016-12-27] MEDS: FLEXERIL PO PRN ×2 (07:11→15:06)
[2016-12-27] MEDS: ELIQUIS PO SCH ×2 (08:58→21:41)
[2016-12-27] MEDS: COZAAR PO SCH (08:58)
[2016-12-27] MEDS: LEXAPRO PO SCH (08:58)
[2016-12-27] MEDS: ALDACTONE PO SCH (08:59)
--- NOTE | 2016-12-27 09:19 | PROGRESS NOTE ---
DATE: 12/27/2016 VITAL SIGNS: Stable with temperature 98.3 degrees, heart rate 99, respirations 22, blood pressure 181/82, O2 saturation on room air 98%. SUBJECTIVE: The patient continues to slowly improve with less back pain. She did require a pain pill this morning. Legs have improved with decrease in cellulitis. Physical therapy is continued. PLAN: Rehab when bed can be arranged. cc: Sabino Kimball MD
[2016-12-27] MEDS: SANTYL OINT TOP SCH (10:55)
[2016-12-27] MEDS: XANAX PO SCH (21:40)
[2016-12-28] MEDS: CLEOCIN PO SCH ×4 (03:28→21:17)
[2016-12-28] MEDS: NORCO-10 PO PRN ×3 (03:43→16:19)
[2016-12-28] MEDS: SYNTHROID PO SCH ×4 (05:51→06:07)
[2016-12-28] MEDS: ALPHAGAN P 0.1% OPHTH SOLN BOTH EYES SCH ×3 (05:51→21:17)
[2016-12-28] MEDS: APRESOLINE PO SCH ×3 (05:52→21:17)
[2016-12-28] MEDS: HUMALOG DOSE (PARKWAY) SUBQ SCH ×4 (06:07→21:07)
[2016-12-28] MEDS: ALDACTONE PO SCH (08:38)
[2016-12-28] MEDS: ELIQUIS PO SCH ×2 (08:38→21:12)
[2016-12-28] MEDS: LEXAPRO PO SCH (08:39)
[2016-12-28] MEDS: FLEXERIL PO PRN (08:39)
[2016-12-28] MEDS: COZAAR PO SCH (08:39)
--- NOTE | 2016-12-28 08:45 | PROGRESS NOTE ---
DATE: 12/28/2016 Temperature 98 degrees, heart rate 85, respirations 20, blood pressure 155/55, O2 saturation 95% on room air. She continues to complain with back and right hip pain. Lungs are clear. Legs have improved. PLAN: Add OxyContin 10 mg b.i.d. Rehab is planned for discharge. Presently in the process of waiting for level 2 final report from the state to approve rehab. cc: Sabino Kimball MD
[2016-12-28] MEDS: OXYCONTIN PO SCH ×2 (09:09→21:17)
[2016-12-28] MEDS: SANTYL OINT TOP SCH ×2 (09:11→10:03)
[2016-12-28] MEDS: XANAX PO SCH (21:17)
[2016-12-29] MEDS: CLEOCIN PO SCH ×4 (03:11→21:12)
[2016-12-29] MEDS: APRESOLINE PO SCH ×3 (06:09→21:12)
[2016-12-29] MEDS: ALPHAGAN P 0.1% OPHTH SOLN BOTH EYES SCH ×3 (06:09→21:18)
[2016-12-29] MEDS: HUMALOG DOSE (PARKWAY) SUBQ SCH ×4 (06:09→21:18)
[2016-12-29] MEDS: SYNTHROID PO SCH ×2 (06:10)
[2016-12-29] MEDS: NORCO-10 PO PRN ×2 (06:54→12:09)
[2016-12-29] MEDS: COZAAR PO SCH (08:39)
[2016-12-29] MEDS: ELIQUIS PO SCH ×2 (08:39→21:12)
[2016-12-29] MEDS: ALDACTONE PO SCH (08:39)
[2016-12-29] MEDS: LEXAPRO PO SCH (08:39)
[2016-12-29] MEDS: OXYCONTIN PO SCH ×2 (08:39→21:12)
[2016-12-29] MEDS: SANTYL OINT TOP SCH (08:48)
[2016-12-29] MEDS: PREDNISONE PO SCH (08:50)
--- NOTE | 2016-12-29 10:07 | PROGRESS NOTE ---
DATE: 12/29/2016 Vital signs stable with temperature 98.3 degrees, heart rate 84, respiration 18, blood pressure 156/77, O2 saturation on room air 97%. The patient is tearful complaining with low back pain on the right. OxyContin seemed to help some, but not enough. Rehab plans are still pending. PLAN: Continue physical therapy, add prednisone p.o. daily. cc: Sabino Kimball MD
[2016-12-29] MEDS: FLEXERIL PO PRN (14:33)
[2016-12-29] MEDS: ZOFRAN ODT PO PRN (14:54)
[2016-12-29] MEDS: LIDODERM TOP SCH (16:50)
[2016-12-29] MEDS: XANAX PO SCH (21:13)
[2016-12-30] MEDS: CLEOCIN PO SCH ×4 (02:54→21:14)
[2016-12-30] MEDS: HUMALOG DOSE (PARKWAY) SUBQ SCH ×4 (07:00→21:35)
[2016-12-30] MEDS: ALDACTONE PO SCH (09:36)
[2016-12-30] MEDS: PREDNISONE PO SCH (09:36)
[2016-12-30] MEDS: LEXAPRO PO SCH (09:36)
[2016-12-30] MEDS: COZAAR PO SCH (09:36)
[2016-12-30] MEDS: ELIQUIS PO SCH (09:36)
[2016-12-30] MEDS: OXYCONTIN PO SCH ×2 (09:37→21:14)
[2016-12-30] MEDS: LIDODERM TOP SCH ×2 (09:41→09:44)
[2016-12-30] MEDS: SANTYL OINT TOP SCH (09:41)
[2016-12-30] MEDS: ALPHAGAN P 0.1% OPHTH SOLN BOTH EYES SCH ×3 (12:42→21:14)
[2016-12-30] MEDS: APRESOLINE PO SCH ×3 (12:42→21:14)
[2016-12-30] MEDS: SYNTHROID PO SCH ×2 (12:44)
[2016-12-30] MEDS: NORCO-10 PO PRN ×2 (14:29→17:40)
[2016-12-30] MEDS: XANAX PO SCH (21:14)
[2016-12-31] MEDS: CLEOCIN PO SCH ×4 (02:45→19:28)
[2016-12-31] MEDS: SYNTHROID PO SCH ×2 (06:22)
[2016-12-31] MEDS: ALPHAGAN P 0.1% OPHTH SOLN BOTH EYES SCH ×3 (06:22→21:11)
[2016-12-31] MEDS: APRESOLINE PO SCH ×3 (06:22→21:10)
[2016-12-31] MEDS: HUMALOG DOSE (PARKWAY) SUBQ SCH ×4 (06:22→21:10)
[2016-12-31] MEDS: COZAAR PO SCH (10:16)
[2016-12-31] MEDS: PREDNISONE PO SCH (10:16)
[2016-12-31] MEDS: LEXAPRO PO SCH (10:16)
[2016-12-31] MEDS: ALDACTONE PO SCH (10:17)
[2016-12-31] MEDS: OXYCONTIN PO SCH ×2 (10:17→21:10)
[2016-12-31] MEDS: LIDODERM TOP SCH (10:20)
[2016-12-31] MEDS: SANTYL OINT TOP SCH (10:21)
[2016-12-31] MEDS: NORCO-10 PO PRN (14:16)
[2016-12-31] MEDS: XANAX PO SCH (21:09)
[2017-01-01] MEDS: CLEOCIN PO SCH ×3 (01:04→13:41)
[2017-01-01] MEDS: HUMALOG DOSE (PARKWAY) SUBQ SCH ×3 (06:20→16:03)
[2017-01-01] MEDS: ALPHAGAN P 0.1% OPHTH SOLN BOTH EYES SCH ×2 (06:38→12:14)
[2017-01-01] MEDS: SYNTHROID PO SCH ×2 (06:38)
[2017-01-01] MEDS: APRESOLINE PO SCH ×2 (06:38→12:14)
[2017-01-01] MEDS: OXYCONTIN PO SCH (08:09)
[2017-01-01] MEDS: COZAAR PO SCH (08:09)
[2017-01-01] MEDS: LEXAPRO PO SCH (08:10)
[2017-01-01] MEDS: PREDNISONE PO SCH (08:11)
[2017-01-01] MEDS: LIDODERM TOP SCH (08:11)
[2017-01-01] MEDS: ALDACTONE PO SCH (08:11)
--- NOTE | 2017-01-01 08:37 | PROGRESS NOTE ---
DATE: 01/01/2017 VITAL SIGNS: Stable with temperature 98.4 degrees, heart rate 97, respirations 20, blood pressure 153/55, O2 saturation on room air 98%. ASSESSMENT: Patient continues to have moderate pain in the right hip and low back. She states on a scale of 10 that the pain is a 7. The Lidoderm patches seem to help a little bit, but caused itching. They were discontinued. Chest is clear. PLAN: Rehab when a bed is available or can be arranged. cc: Sabino Kimball MD
[2017-01-01] MEDS: NORCO-10 PO PRN ×2 (11:39→16:07)
[2017-01-01] MEDS: SANTYL OINT TOP SCH (12:13)
[2017-01-01] MEDS: FLEXERIL PO PRN (14:06)
[2017-01-01 15:09] VITALS: BP 137/73
--- NOTE | 2017-01-01 15:41 | DISCHARGE SUMMARY ---
ADMISSION DATE: 12/14/2016 DISCHARGE DATE: 01/01/2017 FINAL DIAGNOSES: 1. Cellulitis of both legs with ulcer on the right significant for Pseudomonas and Enterococcus. 2. Diabetes. 3. Venous insufficiency of the legs with edema. 4. Hearing loss with history of acoustic neuroma on the left. 5. Depression. 6. Insomnia. DISPOSITION: To [facility]. HISTORY OF PRESENT ILLNESS: This is the first recent [facility] admission for this 76-year- old, white female with diabetes who has been unresponsive to p.o. medications for cellulitis of her legs. She developed an ulcer of her right anterior tibial area. She also has complained of increasing low back pain and inability to walk. She was admitted for further evaluation, treatment with intravenous antibiotics, and for further evaluation. INITIAL LABORATORY: Hemoglobin 7.6, hematocrit 26.1, white blood count 5600. Blood sugar 123. Right leg x-ray showed no evidence of osteomyelitis. Hip and pelvis x-ray showed no significant bony disease. Lumbar spine revealed moderate to marked degenerative changes and calcified uterine fibroids. Chest x-ray showed cardiomegaly with pulmonary edema. HOSPITAL COURSE: She was transfused 2 units of blood and hematocrit alejandrina to 34. She continued to be afebrile. Antibiotics included vancomycin and clindamycin. There was slow improvement of both legs with decreasing erythema, decreasing swelling, and marked improvement of the ulcer prior to discharge. Because of her depression, level 2 psych investigation was made. A meeting was held with the [facility] this morning and rehab approved. Her back pain was somewhat relieved with Dilaudid, but this caused somnolence and hypoxia. She was changed back to [place] and OxyContin was added. Lidoderm patches were tried, but this caused itching. She is sent to rehab on usual medicines plus some minor changes in blood pressure medicine with addition of Apresoline and change to losartan. Pain medicines include [place] 10/325 q.i.d. and OxyContin 10 mg b.i.d. Physical therapy has assisted in ambulating the patient with assistance. She has improved somewhat over the last few days. Hopefully, she can return home after rehab. cc: Sabino Kimball MD
== END 2017-01-01 18:12 ==
LOC: P.DIRADM 14:24 → P.MEDSURG 12-14 16:31
PROVIDERS: ADMIT Family Medicine; ATTEND Family Medicine